=== PATIENT | female | born 1995 | race Asian ===

== ENCOUNTER 2019-10-16 22:01 | Emergency (ER) | payer OTHER ==
[~2019-10-16] VITALS: Ht 157 cm; Wt 47.0 kg
--- NOTE | 2019-10-16 23:26 | NUR ---
C COLLAR REMOVED BY DR. DELGADO AT THIS TIME.
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
[2019-10-16 23:34] VITALS: BP 125/86
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
== END 2019-10-16 23:34 | disposition home or self-care (01) ==
LOC: ER 22:02
DX: M54.2 Cervicalgia (principal); M54.6 Pain in thoracic spine; R51 Headache; R40.2142 Coma scale, eyes open, spontaneous, at arrival to emergency department; R40.2252 Coma scale, best verbal response, oriented, at arrival to emergency department; R40.2362 Coma scale, best motor response, obeys commands, at arrival to emergency department; V49.59XA Passenger injured in collision with other motor vehicles in traffic accident, initial encounter
CPT/HCPCS: 70450; 72125; 72128